=== PATIENT | male | born 2000 | race Caucasian/White ===

== ENCOUNTER 2024-11-06 12:09 | Inpatient (IN) | payer OTHER ==
[~2024-11-06] VITALS: Ht 160 cm; Wt 50.1 kg
[2024-11-06 12:57] LABS: HEMATOCRIT. 48.4 % (42.0-52.0); HEMOGLOBIN. 16.6 g/dL (14.0-18.0); MEAN PLATELET VOLUME 8.0 fl (7.4-10.4); PLATELET 262 x1000/uL (130-400); RED BLOOD CELL COUNT 5.39 mill/uL (4.7-6.1); RED CELL DISTRIBUTION WIDTH 14.1 % (11.6-14.6)
[2024-11-06] MEDS: PIPERACILLIN/TAZO 3.375G/50ML 50 ML IV ONE (12:57)
[2024-11-06] MEDS: SODIUM CHLORIDE 0.9% (SEPSIS BOLUS) IV ONE (12:58)
[2024-11-06 12:59] LABS: CREATININE 0.6 mg/dL (0.6-1.3)
[2024-11-06 13:00] LABS: UREA NITROGEN BLOOD 16 mg/dL (9-23)
[2024-11-06 13:01] LABS: ASPARTATE AMINOTRANSFERASE 15 IU/L (<34)
[2024-11-06 13:02] LABS: BILIRUBIN DIRECT 0.3 mg/dL (<=3.0); BILIRUBIN TOTAL 0.7 mg/dL (0.1-1.0); PROTEIN TOTAL 6.2 g/dL (6.0-8.3)
[2024-11-06 13:41] LABS: TROPONIN I HIGH SENSITIVITY < 4 ng/L (3.0-53)
[2024-11-06 13:50] LABS: BAND% 32.0 % (1.0-6.0); LYMPHOCYTES % MANUAL 13.0 % (20.0-50.0); METAMYELOCYTES % 1.0 % (0-0); MONOCYTES % MANUAL 35.0 % (2.0-8.0); NEUTROPHILS % MANUAL 19.0 % (45.0-75.0)
[2024-11-06 13:51] LABS: PLATELET ESTIMATE NORMAL
[2024-11-06] MEDS: VANCOMYCIN 1G PREMIX 200 ML IV ONE (14:03)
[2024-11-06 14:15] LABS: INR 1.1
[2024-11-06 15:30] VITALS: BP 110/68; PULSE 107; RESP 18; TEMP 36.6
[2024-11-06 16:00] VITALS: BP 103/41; PULSE 20; RESP 20; TEMP 37; O2SAT 97
[2024-11-06] MEDS ORDERED: ACETAMINOPHEN 325MG TABLET PO PRN ×2 (17:15)
[2024-11-06] MEDS ORDERED: CLONIDINE 0.1MG TABLET PO PRN (17:15)
[2024-11-06] MEDS ORDERED: IPRATROPIUM/ALBUTEROL 0.5-3(2.5)MG/3ML NEB HHN PRN (17:15)
[2024-11-06] MEDS ORDERED: ONDANSETRON HCL 4MG/2ML INJ IV PRN (17:15)
[2024-11-06] MEDS: DEXT 5%/0.9% NACL 1,000 ML IV SCH (17:59)
[2024-11-06] MEDS: PANTOPRAZOLE SODIUM 40 MG/VIAL IV SCH (18:09)
[2024-11-06] MEDS: LACTULOSE 20G/30ML UDC PO SCH (18:18)
[2024-11-06 20:57] VITALS: BP 123/78; PULSE 102; RESP 19; TEMP 37.1; O2SAT 97
[2024-11-06 21:42] LABS: CLARITY URINE CLEAR (CLEAR); COLOR URINE DARK YELLOW (YELLOW); GLUCOSE URINE NEGATIVE (NEGATIVE); KETONES URINE 2+ (NEGATIVE); LEUKOCYTE ESTERASE URINE NEGATIVE (NEGATIVE); NITRITE URINE NEGATIVE (NEGATIVE); OCCULT BLOOD URINE NEGATIVE (NEGATIVE); PH URINE 6.0 (4.5-8.0); PROTEIN URINE 1+ (NEGATIVE); SPECIFIC GRAVITY URINE 1.026 (1.005-1.030); UROBILINOGEN URINE 1.0 E.U./dL (0.2-1.0)
[2024-11-06 21:46] LABS: *AMPHETAMINES SCREEN URINE NEGATIVE (NEGATIVE); *BARBITURATES SCREEN URINE NEGATIVE (NEGATIVE); *BENZODIAZEPINES SCREEN URINE NEGATIVE (NEGATIVE); *COCAINE SCREEN URINE NEGATIVE (NEGATIVE); CANNABINOID URINE SCREEN NEGATIVE (NEGATIVE); ECSTASY MDMA SCREEN URINE NEGATIVE (NEGATIVE); METHADONE URINE SCREEN NEGATIVE (NEGATIVE); OPIATES URINE SCREEN NEGATIVE (NEGATIVE); PHENCYCLIDINE URINE SCREEN NEGATIVE (NEGATIVE)
[2024-11-06 21:50] LABS: RBC URINE NONE SEEN /hpf (0-2); WBC URINE 0-2 /hpf (0-2)
[2024-11-06 21:51] LABS: BACTERIA URINE 1+; SQUAMOUS EPITHELIAL CELL URINE FEW /lpf (RARE/1+)
[2024-11-06] MEDS: DILTIAZEM HCL 30MG TABLET PO SCH (21:52)
[2024-11-06] MEDS: PIPERACILLIN/TAZO 3.375G/50ML 50 ML IV SCH (21:52)
[2024-11-06] MEDS: NA PHOS,M-B/NA PHOS,DI-BA ENEMA 118ML PR SCH (21:52)
[2024-11-06] MEDS: SENNOSIDES/DOCUSATE SOD 8.6/50MG TABLET PO SCH (21:52)
[2024-11-06] MEDS: BISACODYL 10MG SUPP PR SCH (21:54)
[2024-11-06 22:41] LABS: CREATINE KINASE MB FRACTION < 0.5 ng/mL (0.5-3.6); TROPONIN I HIGH SENSITIVITY < 4 ng/L (3.0-53)
[2024-11-07] VITALS: BP 104/62; PULSE 108; RESP 20; TEMP 36.9; O2SAT 97
[2024-11-07 04:00] VITALS: BP 96/56; PULSE 92; RESP 20; TEMP 36.4; O2SAT 98
[2024-11-07 08:00] VITALS: BP 101/62; PULSE 92; RESP 20; TEMP 36.1; O2SAT 99
[2024-11-07] MEDS: POLYETHYLENE GLYCOL 3350 (17GM) 1 DOSE PACK PO SCH (08:44)
[2024-11-07 12:00] VITALS: BP 108/68; PULSE 98; RESP 20; TEMP 37.1; O2SAT 99
[2024-11-07 13:20] LABS: HEMATOCRIT. 44.3 % (42.0-52.0); HEMOGLOBIN. 15.1 g/dL (14.0-18.0); MEAN PLATELET VOLUME 7.7 fl (7.4-10.4); PLATELET 268 x1000/uL (130-400); RED BLOOD CELL COUNT 4.96 mill/uL (4.7-6.1); RED CELL DISTRIBUTION WIDTH 14.2 % (11.6-14.6)
[2024-11-07 13:31] LABS: CREATININE 0.6 mg/dL (0.6-1.3)
[2024-11-07 13:32] LABS: UREA NITROGEN BLOOD 13 mg/dL (9-23)
[2024-11-07] MEDS: DOCUSATE SODIUM 100MG CAPSULE PO PRN (14:31)
[2024-11-07 15:23] LABS: BAND% 24.0 % (1.0-6.0); LYMPHOCYTES % MANUAL 15.0 % (20.0-50.0); METAMYELOCYTES % 3.0 % (0-0); MONOCYTES % MANUAL 29.0 % (2.0-8.0); MYELOCYTES % 2.0 % (0-0); NEUTROPHILS % MANUAL 27.0 % (45.0-75.0)
[2024-11-07 15:24] LABS: PLATELET ESTIMATE NORMAL
[2024-11-07 16:00] VITALS: BP 110/73; PULSE 89; RESP 18; TEMP 36.7; O2SAT 100
[2024-11-07] MEDS ORDERED: KCL 20MEQ/100ML PREMIX 100 ML IV ONE (16:00)
[2024-11-07] MEDS ORDERED: KCL 20MEQ/100ML PREMIX 100 ML IV SCH (16:00)
[2024-11-07] MEDS ORDERED: KCL 20MEQ/100ML X 3 FOR TOTAL KCL 60MEQ/300ML IV SCH (17:00)
[2024-11-07] MEDS: POTASSIUM CHLORIDE 20MEQ/PACKET PO SCH (18:05)
[2024-11-07 20:00] VITALS: BP 118/80; PULSE 93; RESP 17; TEMP 36.2; O2SAT 97
[2024-11-07] MEDS: POTASSIUM CHLORIDE 20MEQ/PACKET PO NR (21:51)
[2024-11-08] VITALS: BP 101/62; PULSE 84; RESP 18; TEMP 36.7; O2SAT 97
[2024-11-08 04:00] VITALS: BP 116/85; PULSE 89; RESP 18; TEMP 36.6; O2SAT 99
[2024-11-08 07:52] VITALS: BP 111/74; PULSE 71; RESP 20; TEMP 36.8; O2SAT 97
[2024-11-08 08:12] LABS: HEMATOCRIT. 39.4 % (42.0-52.0); HEMOGLOBIN. 13.6 g/dL (14.0-18.0); MEAN PLATELET VOLUME 7.7 fl (7.4-10.4); PLATELET 249 x1000/uL (130-400); RED BLOOD CELL COUNT 4.41 mill/uL (4.7-6.1); RED CELL DISTRIBUTION WIDTH 14.3 % (11.6-14.6)
[2024-11-08 08:50] LABS: CREATININE 0.5 mg/dL (0.6-1.3); UREA NITROGEN BLOOD 13 mg/dL (9-23)
[2024-11-08 09:15] LABS: ERYTHROCYTE SEDIMENTATION RATE 11 mm/hr (0-15)
[2024-11-08 11:44] VITALS: BP 108/65; PULSE 66; RESP 18; TEMP 36.9; O2SAT 100
[2024-11-08] MEDS ORDERED: POLY17PO3 MT (13:14)
[2024-11-08] MEDS ORDERED: METR-167 MT (14:00)
[2024-11-08] MEDS ORDERED: LEVO-65 MT (14:00)
[2024-11-08] MEDS: POLYVINYL ALCOHOL OPHTH DROPS 15ML BOTHEYE SCH (14:26)
[2024-11-08 15:40] VITALS: BP 114/72; PULSE 94; RESP 18; TEMP 36.8; O2SAT 98
[2024-11-08 16:07] VITALS: BP 114/72; PULSE 94; TEMP 98.3; O2SAT 99
[2024-11-08 16:37] LABS: BAND% 7.0 % (1.0-6.0); EOSINOPHILS % MANUAL 1.0 % (0.0-5.0); LYMPHOCYTES % MANUAL 23.0 % (20.0-50.0); MONOCYTES % MANUAL 17.0 % (2.0-8.0); NEUTROPHILS % MANUAL 52.0 % (45.0-75.0); PLATELET ESTIMATE NORMAL
[2024-11-12 13:07] LABS: SACCHAROMYCES CEREVISIAE IGG <20.0 Units (0.0-24.9); SACCHAROMYCES CEREVISIAE IGM <20.0 Units (0.0-24.9)
== END 2024-11-08 18:07 | disposition home or self-care (01) | DRG 247 ==
LOC: ER 12:09 → 7WST 14:10 → EDBEDREQTM 14:13 → EDBEDREQ 14:13 → ENRESERV 14:27 → 7WST 21:27
PROVIDERS: ADMIT Internal Medicine; ATTEND Internal Medicine
DX: K56.41 Fecal impaction (principal); E87.1 Hypo-osmolality and hyponatremia; K52.9 Noninfective gastroenteritis and colitis, unspecified; E87.6 Hypokalemia; F84.0 Autistic disorder; G80.9 Cerebral palsy, unspecified; K82.8 Other specified diseases of gallbladder; R01.1 Cardiac murmur, unspecified; D72.825 Bandemia
CPT/HCPCS: 36415; 71045; 74176; 76700; 80048; 80076; 80305; 81003; 82270; 82550; 82553; 83605; 84145; 84484; 85025; 85651; 86256; 86671; 87015; 87045; 87427; 87449; 87493; 89055; 93005; 96365; 96367; 99291; J2470; J2543; J3370; J7030; J7042